=== PATIENT | female | born 1980 | race Hispanic/Latino ===

== ENCOUNTER 2017-09-27 19:59 | Emergency (ER) | payer MEDICARE ==
[~2017-09-27] VITALS: Ht 167.6 cm; Wt 90.7 kg
[2017-09-27] MEDS ORDERED: IBUPROFEN 600 MG TAB PO STA (20:37)
--- NOTE | 2017-09-27 21:51 | Diagnostic Imaging Report ---
History: Fever, headache Comparison studies: None Technique: Axial images were obtained from the skull base to the vertex. Coronal and sagittal reconstructions obtained from the axial data. Findings: Scalp/skull: No abnormalities. No fractures, blastic or lytic lesions. Extra-axial spaces: No masses. No fluid collections. Brain sulci: Appropriate for age. Ventricles: Normal in size and configuration. No hydrocephalus. Parenchyma: No abnormal densities. No masses, hemorrhage, acute or chronic cortical vascular insults. Sellar/suprasellar region: No abnormalities Craniocervical junction: Patent foramen magnum. No Chiari one malformation. Incidental nonobstructing retention cyst in the right maxillary sinus IMPRESSION: No intracranial abnormalities. Signed by: Dr. Shahid Pinzon M.D. on 09/27/2017 9:47 PM
--- NOTE | 2017-09-27 22:51 | Diagnostic Imaging Report ---
CHEST SINGLE (PORTABLE), 09/27/2017 8:36 PM Technique: CHEST SINGLE (PORTABLE) Comparison: None Clinical history: Fever Findings: Unremarkable portable appearance of the heart, mediastinum, lungs and pleural spaces. Impression: 1. Lines/Tubes: None 2. No acute abnormality. Signed by: Dr Enedina Walls MD on 09/27/2017 10:48 PM
[2017-09-27 23:41] LABS: BILIRUBIN,URINE NEGATIVE (NEGATIVE); CLARITY,URINE CLEAR (CLEAR); COLOR,URINE YELLOW (YELLOW); KETONES,URINE NEGATIVE (NEGATIVE); LEUKOCYTE ESTERASE ,URINE NEGATIVE (NEGATIVE); NITRITE,URINE NEGATIVE (NEGATIVE); PROTEIN,URINE DIPSTICK NEGATIVE (NEGATIVE); URINE UROBILINOGEN 0.2 mg/dL (0.2 - 1)
[2017-09-27 23:59] LABS: BACTERIA,URINE RARE /HPF; EPITHELIAL CELLS,URINE RARE /LPF
== END 2017-09-28 01:24 | disposition left against medical advice (07) ==
LOC: ER 19:59
DX: R50.9 Fever, unspecified (principal)
CPT/HCPCS: 70450; 71045; 81001